=== PATIENT | male | born 1980 | race African-American/Black ===

== ENCOUNTER 2016-11-15 17:04 | Emergency (ER) | payer MEDICAID | END 2016-11-15 20:46 | disposition left against medical advice (07) | LOC: D.ER 17:04 | DX: S61.452A Open bite of left hand, initial encounter (principal); W54.0XXA Bitten by dog, initial encounter; Y93.89 Activity, other specified; Y92.89 Other specified places as the place of occurrence of the external cause ==

== ENCOUNTER 2019-04-28 11:41 | Emergency (ER) | payer SELFPAY ==
[~2019-04-28] VITALS: Ht 180.3 cm; Wt 72.7 kg
[2019-04-28 11:43] VITALS: Ht 180.3 cm; Wt 72.7 kg
[2019-04-28] MEDS ORDERED: ZESTRIL40 MG PO (11:47)
[2019-04-28] MEDS ORDERED: PRAVASTATIN SOD10 MG PO (11:47)
[2019-04-28] MEDS ORDERED: VOLTAREN75 MG PO (15:24)
[2019-04-28] MEDS ORDERED: HYDROCODON-ACE1 EA10 PO (15:24)
[2019-04-28 16:07] VITALS: BP 129/84
== END 2019-04-28 16:07 | disposition home or self-care (01) ==
LOC: D.ER 11:41
DX: S92.062A Displaced intraarticular fracture of left calcaneus, initial encounter for closed fracture (principal); W17.89XA Other fall from one level to another, initial encounter; Y93.89 Activity, other specified; Y92.89 Other specified places as the place of occurrence of the external cause